=== PATIENT | female | born 1945 | race Caucasian/White ===

== ENCOUNTER 2016-10-19 07:59 | Emergency (ER) | payer OTHER, MEDICARE ==
[2016-10-19 12:07] VITALS: BP 118/60
== END 2016-10-19 12:07 | disposition home or self-care (01) ==
LOC: ED 07:59
DX: S82.142A Displaced bicondylar fracture of left tibia, initial encounter for closed fracture (principal); I25.810 Atherosclerosis of coronary artery bypass graft(s) without angina pectoris; E78.5 Hyperlipidemia, unspecified; E11.9 Type 2 diabetes mellitus without complications; W18.2XXA Fall in (into) shower or empty bathtub, initial encounter; Y93.E1 Activity, personal bathing and showering; Y99.8 Other external cause status; Y92.89 Other specified places as the place of occurrence of the external cause; Z79.84 Long term (current) use of oral hypoglycemic drugs
CPT/HCPCS: J3010